=== PATIENT | male | born 1965 | race Caucasian/White ===

== ENCOUNTER 2018-07-08 13:22 | Emergency (ER) | payer BC ==
[~2018-07-08] VITALS: Ht 188 cm; Wt 113.4 kg
[2018-07-08] MEDS ORDERED: NORCO 5-325 TA1 EACH PO (15:24)
[2018-07-08] MEDS ORDERED: MEDROLDOSEPACK PO (15:24)
[2018-07-08] MEDS ORDERED: FLEXERIL PO (15:24)
[2018-07-08 15:45] VITALS: BP 140/82
== END 2018-07-08 15:48 | disposition home or self-care (01) ==
LOC: M.ERS 13:22
DX: M25.561 Pain in right knee (principal)

== ENCOUNTER → 2018-07-12 | Outpatient (CLI) | payer BC ==
[~2018-07-12] MED LIST: FLEXERIL PO; MEDROLDOSEPACK PO; NORCO 5-325 TA1 EACH PO
== END ==
LOC: M.MRI 07:56
DX: S83.242A Other tear of medial meniscus, current injury, left knee, initial encounter (principal); M25.462 Effusion, left knee; M71.22 Synovial cyst of popliteal space [Baker], left knee; X58.XXXA Exposure to other specified factors, initial encounter; Y93.89 Activity, other specified; Y92.89 Other specified places as the place of occurrence of the external cause; Y99.8 Other external cause status